=== PATIENT | female | born 2000 | race Caucasian/White ===

== ENCOUNTER 2018-07-12 18:18 | Emergency (ER) | payer OTHER | END 2018-07-12 22:04 | disposition home or self-care (01) | LOC: FTE 18:18 | DX: S60.862A Insect bite (nonvenomous) of left wrist, initial encounter (principal); M79.642 Pain in left hand; W57.XXXA Bitten or stung by nonvenomous insect and other nonvenomous arthropods, initial encounter; Y92.9 Unspecified place or not applicable | CPT/HCPCS: 93005; 99283-25 ==